=== PATIENT | female | born 1970 | race Hispanic/Latino ===

== ENCOUNTER 2018-05-03 21:31 | Emergency (ER) | payer BC ==
[2018-05-03 21:41] VITALS: RESP 16; O2SAT 100
[2018-05-03] MEDS ORDERED: Sodium Chloride 0.9% 1,000 ML IV STA (23:13)
--- NOTE | 2018-05-03 23:27 | ED PDOC ---
HPI: Abdomen Time Seen by Provider: 05/03/18 23:01 Chief Complaint (Nursing): Back Pain Chief Complaint (Provider): abdominal pain History Per: Patient History/Exam Limitations: no limitations Onset/Duration Of Symptoms: Hrs (4) Current Symptoms Are (Timing): Still Present Location Of Pain/Discomfort: RUQ, Epigastric, Other (right flank) Quality Of Discomfort: "Pain" Associated Symptoms: Nausea Additional Complaint(s): 47 y/o female presents for evaluation of right upper abdominal pain x 4 hours. Patient states pain radiates to right flank, describes as "cramping". Associated nausea. Denies fever, vomiting, chest pain, shortness of breath, palpitations, changes in bowel movements, urinary symptoms. No medication taken for relief thus far. Past Medical History Reviewed: Historical Data, Nursing Documentation, Vital Signs Vital Signs: Last Vital Signs Temp 98.7 F 05/03/18 21:39 Pulse 96 H 05/03/18 21:39 Resp 16 05/03/18 21:39 BP 131/82 05/03/18 21:39 Pulse Ox 100 05/04/18 03:14 - Medical History PMH: No Chronic Diseases - Surgical History Surgical History: No Surg Hx - Family History Family History: States: No Known Family Hx - Living Arrangements Living Arrangements: With Family - Home Medications Home Medications: Ambulatory Orders Medication Instructions Recorded Naproxen [Naprosyn] 500 mg PO Q12 PRN #20 tablet 05/04/18 Polyethylene Glycol 3350 [Miralax] 17 gm PO DAILY PRN #5 powd.pack 05/04/18 - Allergies Allergies/Adverse Reactions: Allergies Allergy/AdvReac Type Severity Reaction Status Date / Time No Known Allergies Allergy Verified 05/03/18 21:38 Review of Systems ROS Statement: Except As Marked, All Systems Reviewed And Found Negative Gastrointestinal: Positive for: Nausea, Abdominal Pain Musculoskeletal: Positive for: Back Pain Physical Exam - Reviewed Nursing Documentation Reviewed: Yes Vital Signs Reviewed: Yes - Physical Exam Appears: Positive for: Well, Non-toxic, Uncomfortable Head Exam: Positive for: ATRAUMATIC, NORMAL INSPECTION, NORMOCEPHALIC Skin: Positive for: Normal Color Eye Exam: Positive for: Normal appearance ENT: Positive for: Normal ENT Inspection Cardiovascular/Chest: Positive for: Regular Rate, Rhythm Respiratory: Positive for: Normal Breath Sounds Gastrointestinal/Abdominal: Positive for: Bowel Sounds, Soft, Tenderness ( epigastric, RUQ, right flank) Back: Positive for: Normal Inspection Extremity: Positive for: Normal ROM Neurologic/Psych: Positive for: Alert, Oriented (x3) - Laboratory Results Result Diagrams: 05/03/18 23:33 05/03/18 23:33 - ECG O2 Sat by Pulse Oximetry: 100 - Progress ED Course And Treament: labs, urine, CT renal protocol, IV toradol EXAM: CT Abdomen and Pelvis Without Intravenous Contrast EXAM DATE/TIME: 05/04/2018 12:01 AM CLINICAL HISTORY: 47 years old, female; Pain; Abdominal pain; Flank; Right; Additional info: Right flank pain TECHNIQUE: Axial computed tomography images of the abdomen and pelvis without intravenous contrast. All CT scans at this facility use at least one of these dose optimization techniques: automated exposure control; mA and/or kV adjustment per patient size (includes targeted exams where dose is matched to clinical indication); or iterative reconstruction. Coronal and sagittal reformatted images were created and reviewed. COMPARISON: No relevant prior studies available. FINDINGS: Lower thorax: No acute findings. Partially visualized breast prostheses ABDOMEN: Liver: Normal. No mass. Gallbladder and bile ducts: Normal. No calcified stones. No ductal dilation. Pancreas: Normal. No ductal dilation. Spleen: Normal. No splenomegaly. Adrenals: Normal. No mass. Kidneys and ureters: Normal. No hydronephrosis. Stomach and bowel: Moderate to large stool in the colon. Mild colonic diverticulosis without definite diverticulitis No obstruction. Question mild mucosal thickening. Appendix: No evidence of appendicitis. PELVIS: Bladder: Unremarkable as visualized. Reproductive: Presumed faint phleboliths ABDOMEN and PELVIS: Intraperitoneal space: Normal. No free air. No significant fluid collection. Bones/joints: No acute fracture. No dislocation. Degenerative changes in the spine Soft tissues: Unremarkable. Vasculature: Normal. No abdominal aortic aneurysm. Lymph nodes: Normal. No enlarged lymph nodes. IMPRESSION: Nonspecific nonobstructed bowel gas pattern. Correlate for mild enteritis versus mild ileus secondary to constipation No CT evidence for obstructive uropathy or appendicitis Colonic diverticulosis without definite diverticulitis Patient educated on CT findings; states she is moving her bowels without difficulty but notes smaller amounts than usual RUQ u/s ordered for further evaluation EXAM: US Abdomen Limited, Right Upper Quadrant CLINICAL HISTORY: 47 years old, female; Pain; Abdominal pain; Epigastric; Additional info: Ruq pain TECHNIQUE: Real-time ultrasound of the right upper quadrant with image documentation. COMPARISON: CT - ABD PELVIS W/O PO OR IV CONT 05/04/2018 12:15 AM FINDINGS: Liver: Unremarkable. No mass. No intrahepatic bile duct dilation. Gallbladder: Unremarkable. No gallstones. Common bile duct: Unremarkable as visualized. No stones. No dilation. Pancreas: Unremarkable as visualized. Right kidney: Unremarkable. No stones. No solid mass. No hydronephrosis. IMPRESSION: Normal right upper quadrant ultrasound. On re-eval, patient states pain resolved. Patient educated on findings, discharged with rx naproxen, miralax. Advised fluids, high fiber diet Return precautions given Disposition - Clinical Impression Clinical Impression: Abdominal pain, Right flank pain, Constipated - Patient ED Disposition Is Patient to be Admitted: No Counseled Patient/Family Regarding: Studies Performed, Diagnosis, Need For Followup, Rx Given - Disposition Disposition: Routine/Home Disposition Time: 03:16 Condition: IMPROVED Prescriptions: Naproxen [Naprosyn] 500 mg PO Q12 PRN #20 tablet PRN Reason: Pain, Moderate (4-7) Polyethylene Glycol 3350 [Miralax] 17 gm PO DAILY PRN #5 powd.pack PRN Reason: Constipation Instructions: Flank Pain, Acute Abdomen (Belly Pain), Constipation in Adults Forms: [facility] (Kiswahili)
[2018-05-04 00:24] LABS: SQUAMOUS EPITHIAL 1 /hpf (0-5); URINE BACTERIA RARE (<OCC); URINE BILIRUBIN NEGATIVE (NEGATIVE); URINE BLOOD MODERATE (NEGATIVE); URINE CLARITY CLEAR (Clear); URINE COLOR YELLOW (YELLOW); URINE GLUCOSE (UA) NEG (Normal); URINE HYALINE CAST 0-2 /hpf (0-2); URINE LEUKOCYTE ESTERASE NEG Leu/uL (Negative); URINE PROTEIN NEGATIVE (NEGATIVE); URINE UROBILINOGEN 0.2-1.0 mg/dL (0.2-1.0)
[2018-05-04 00:25] LABS: BASO # 0.1 K/uL (0.0-0.2); BASO % 0.8 % (0.0-2.0); EOS # 0.2 K/uL (0.0-0.7); HEMOGLOBIN 12.3 g/dL (12.0-16.0); LYMPH # 2.5 K/uL (1.0-4.3); LYMPH % 26.2 % (20.0-40.0); MEAN CELL VOLUME 98.3 fl (81.0-99.0); MEAN CORPUSCULAR HEMOGLOBIN 33.3 pg (27.0-31.0); MEAN CORPUSCULAR HGB CONC 33.9 g/dL (33.0-37.0); MEAN PLATELET VOLUME 8.1 fl (7.2-11.7); MONO # 0.8 K/uL (0.0-0.8); MONO % 8.4 % (0.0-10.0); NEUT # 5.9 K/uL (1.8-7.0); NEUT % 62.6 % (50.0-75.0); RBC 3.69 Mil/uL (3.80-5.20); RED CELL DISTRIBUTION WIDTH 12.3 % (11.5-14.5); WHITE BLOOD COUNT 9.5 K/uL (4.8-10.8)
[2018-05-04 00:31] LABS: ALB/GLOB RATIO 1.6 (1.0-2.1); ALBUMIN 3.6 g/dL (3.5-5.0); ALT/SGPT 32 U/L (9-52); AST/SGOT 29 U/L (14-36); BLOOD UREA NITROGEN 9 mg/dl (7-17); CALCIUM 8.9 mg/dL (8.4-10.2); GFR NON-AFRICAN AMERICAN > 60; LIPASE 103 U/L (23-300)
[2018-05-04 04:01] VITALS: BP 109/75; PULSE 85; TEMP 98.6
--- NOTE | 2018-05-04 08:57 | CT ---
Date of service: 05/04/2018 PROCEDURE: CT Abdomen and Pelvis without intravenous contrast HISTORY: right flank pain COMPARISON: None. TECHNIQUE: Without contrast. Contrast dose: None Radiation dose: Total exam DLP = 216 mGy-cm. This CT exam was performed using one or more of the following dose reduction techniques: Automated exposure control, adjustment of the mA and/or kV according to patient size, and/or use of iterative reconstruction technique. FINDINGS: There is paucity of internal body fat limiting optimal evaluation as does the nonopacified small large bowel loops. LOWER THORAX: Unremarkable. LIVER: Unremarkable. No gross lesion or ductal dilatation. GALLBLADDER AND BILE DUCTS: Unremarkable. PANCREAS: Unremarkable. No gross lesion or ductal dilatation. SPLEEN: Unremarkable. ADRENALS: Unremarkable. No mass. KIDNEYS AND URETERS: Unremarkable. No hydronephrosis. No solid mass. VASCULATURE: Although the distal left ureter is difficult to completely track. No dilatation is seen. The tiny 1 mm right and 2 mm left hemipelvic calcifications that are present the inferior pelvis are probably phleboliths. No aortic aneurysm. BOWEL: Extensive stool present. In the right hepatic flexure location overseas axis series 2, image 40 and coronal series 601, image 37, an area of soft tissue like density without gas like mottling seen elsewhere in the stool/gas admixture is noted. This is not typical for a mural based mass. An intraluminal other form of mass is not excluded. A large stool ball with out gas mottling within it could simulate this. Follow-up is recommended. . No complete or high-grade obstruction. No gross mural thickening. A few left sigmoid diverticuli in a redundant colonic segment ir noted. APPENDIX: Unremarkable. Normal appendix. PERITONEUM: Unremarkable. No free fluid. No free air. LYMPH NODES: Unremarkable. No enlarged lymph nodes. BLADDER: Unremarkable. REPRODUCTIVE: Unremarkable. BONES: No acute fracture. L5-S1 spondylosis with intervening degenerative disc disease. OTHER FINDINGS: Partially visualized are bilateral saline implants. IMPRESSION: No obstructing urolithiasis. Presumed tiny 1 mm (right) and 2 mm (left) bilateral inferior elda pelvic phleboliths. Extensive stool retention. Approximately 4.3 cm soft tissue like "mass "within the right colon near the hepatic flexure with little mottled gas to confirm it as a stool collection. Conceivably a large stool pole without any significant gas could simulate this. It is not typical for a mural based mass. Other intra luminal masses however cannot be entirely excluded. GI consultation follow-up recommended. No high-grade obstruction. Few rectosigmoid diverticuli. No gross inflammatory changes here appreciated to suggest any complicating diverticulitis on this non IV contrast enhanced study. Dominant soft tissue like "mass" within the right colon near the hepatic flexure as detailed above is not specifically mention in the preliminary V rad report. No bowel obstruction was V rad referenced and that is also noted at this final report
--- NOTE | 2018-05-04 08:58 | US ---
Date of service: 05/04/2018 HISTORY: ruq pain COMPARISON: None. TECHNIQUE: Sonographic evaluation of the right upper quadrant of the abdomen. FINDINGS: LIVER: Measures 12.6 cm in length. Normal echogenicity of the liver parenchyma. No mass. No intrahepatic bile duct dilatation. GALLBLADDER: Unremarkable. No gallstones. COMMON BILE DUCT: Measures 2.1 mm. No stones. No dilatation. PANCREAS: Unremarkable as visualized. No mass. No ductal dilatation. RIGHT KIDNEY: Measures 10.9 x 5.4 x 4.8 cm in length. Normal echogenicity. No calculus, mass, or hydronephrosis. AORTA: No aneurysmal dilatation. IVC: Unremarkable. OTHER FINDINGS: None . IMPRESSION: Negative right upper quadrant study. Concordant results (preliminary interpretation) provided by [facility].
== END 2018-05-04 04:06 | disposition home or self-care (01) ==
LOC: H.ER 21:31
DX: R10.9 Unspecified abdominal pain (principal); K59.00 Constipation, unspecified
CPT/HCPCS: 74176; 76705; 80053; 81003; 81025; 83690; 85025; 87086; 96360; 99284; J1885; J2270; J7030